=== PATIENT | female | born 1955 | race Caucasian/White ===

== ENCOUNTER 2016-11-17 07:28 | Day surgery (SDC) | payer BC ==
[2016-11-12 13:43] VITALS: BMI 29.5
[~2016-11-17 07:28] MED LIST: LACTATED RINGERS 1,000 ML IV SCH
[2016-11-17 08:00] VITALS: TEMP 97.7
[2016-11-17] MEDS ORDERED: PROPOFOL 10 MG/ML 20 ML VIAL IV ONE (08:06)
[2016-11-17 08:07] LABS: Glucose,Whole Blood 172 mg/dL (75-99)
--- NOTE | 2016-11-17 08:26 | P.PCN ---
Date of Procedure: 11/17/16 Preoperative Diagnosis: Postoperative Diagnosis: Procedure(s) Performed: BRIEF HISTORY: Patient is a 61-year-old pleasant white female, scheduled for an elective colonoscopy as a part of screening for colorectal neoplasia. PROCEDURE PERFORMED: Colonoscopy. PREOPERATIVE DIAGNOSIS: Screening for colon cancer. IV sedation per Anesthesia. PROCEDURE: After informed consent was obtained, the patient, was brought into the endoscopy unit. IV sedation was administered by Anesthesia under continuous monitoring. Digital rectal examination was normal. Initially the Olympus CF- 160 flexible video colonoscope was then inserted in the rectum, gradually advanced into the cecum without any difficulty. Careful examination was performed as the scope was gradually being withdrawn. Ileocecal valve and the appendiceal orifice were visualized and appeared normal. Prep was excellent. Mucosa of the cecum, ascending colon, transverse colon, descending colon, sigmoid colon, and rectum appeared normal. Retroflexion was performed in the rectum and no lesions were seen. The patient tolerated the procedure well. IMPRESSION: Normal-appearing colon from rectum to cecum with no evidence of colorectal neoplasia. RECOMMENDATIONS: Findings of this examination were discussed with the patient as well as a family. She was advised to have a repeat screening colonoscopy in 10 years. Implants: Indications for Procedure: Operative Findings: Description of Procedure:
[2016-11-17 09:12] VITALS: RESP 18
[2016-11-17 09:13] VITALS: BP 145/68; PULSE 69
== END 2016-11-17 09:16 | disposition home or self-care (01) ==
LOC: ORWHC2ENDO 07:28
PROVIDERS: ATTEND Internal Medicine Gastroenterology
DX: Z12.11 Encounter for screening for malignant neoplasm of colon (principal); C50.919 Malignant neoplasm of unspecified site of unspecified female breast; Z79.811 Long term (current) use of aromatase inhibitors; I10 Essential (primary) hypertension; I34.1 Nonrheumatic mitral (valve) prolapse; E11.9 Type 2 diabetes mellitus without complications; Z79.84 Long term (current) use of oral hypoglycemic drugs; Z79.82 Long term (current) use of aspirin; Z79.899 Other long term (current) drug therapy
CPT/HCPCS: J2704; G0121

== ENCOUNTER → 2017-03-30 | Outpatient (CLI) | payer BC ==
--- NOTE | 2017-03-31 08:58 | XR ---
EXAMINATION TYPE: XR chest 2V DATE OF EXAM: 03/30/2017 COMPARISON: 02/18/2015 HISTORY: Right-sided breast cancer. Patient undergoing radiation therapy. TECHNIQUE: Frontal and lateral views of the chest are obtained. FINDINGS: There is no focal air space opacity, pleural effusion, or pneumothorax seen. The cardiac silhouette size is within normal limits. The osseous structures are intact. IMPRESSION: No acute cardiopulmonary process, unchanged from 02/18/2015.
== END | disposition home or self-care (01) ==
LOC: RADXRMAIN 16:41
PROVIDERS: ATTEND Internal Medicine Medical Oncology
DX: C50.411 Malignant neoplasm of upper-outer quadrant of right female breast (principal)
CPT/HCPCS: 71020

== ENCOUNTER → 2017-03-30 | Outpatient (CLI) | payer BC ==
--- NOTE | 2017-03-31 07:00 | MM ---
Reason for exam: additional evaluation requested from prior study. Last mammogram was performed 1 year ago. History: Patient is postmenopausal, has history of breast cancer at age 57, and has history of other cancer at age 53. Family history of premenopausal breast cancer in sister at age 48 and breast cancer in paternal grandmother at age 60. Malignant right mammotome panel of the right breast, April 06, 2013. Lumpectomy of the right breast, 2012. Radiation therapy, 2012. Taking antineoplastic for 3 years beginning at age 57. Physical Findings: Nurse did not find any significant physical abnormalities on exam. MG 3D Diag Mammo W/Cad ARIELLE Bilateral CC and MLO view(s) were taken. Prior study comparison: March 29, 2016, bilateral MG 3d diag mammo w/cad ARIELLE. March 26, 2015, bilateral MG 3d diag mammo w/cad ARIELLE. Finding #1: Architectural distortion in the right breast consistent with previous biopsy. Finding #2: There are typically benign calcifications in both breasts. There is a chronic nodularity in the left breast. These results were verbally communicated with the patient and result sheet given to the patient on 03/30/17. ASSESSMENT: Benign, BI-RAD 2 RECOMMENDATION: Follow-up diagnostic mammogram of both breasts in 1 year.
--- NOTE | 2017-03-31 10:02 | US ---
EXAMINATION TYPE: US thyroid st tissue head/neck DATE OF EXAM: 03/30/2017 COMPARISON: NONE CLINICAL HISTORY: E04.1 Thyroid nodule. Pt states Dr may have felt enlarged neck on right side GLAND SIZE: Right Lobe: 4.4 x 1.6 x 1.5 cm Overall Parenchyma: homogenous Left Lobe: 3.6 x 1.5 x 1.4 cm Overall Parenchyma: homogeneous Isthmus Thickness: 0.3 cm Bilateral neck scanned, no evidence of lymphadenopathy. Small (2-3mm) size cysts right lobe of thyroi d, otherwise thyroid appeared wnl. IMPRESSION: Although the right lobe is larger than the left the thyroid gland is within normal limits of size. 2 to 3 mm right thyroid cysts are seen. No suspicious nodule.
== END | disposition home or self-care (01) ==
LOC: RADMAMWWP 15:37
PROVIDERS: ATTEND Family Medicine
DX: C50.919 Malignant neoplasm of unspecified site of unspecified female breast (principal); E04.1 Nontoxic single thyroid nodule
CPT/HCPCS: 76536; G0204; G0279

== ENCOUNTER → 2017-11-14 | Outpatient (CLI) | payer BC, OTHER ==
--- NOTE | 2017-11-14 16:32 | BD ---
EXAMINATION TYPE: Axial Bone Density DATE OF EXAM: 11/14/2017 COMPARISON: NONE CLINICAL HISTORY: 62-year-old female with breast cancer, postmenopausal screening Height: 5FT 4 1/2 IN Weight: 188 FRAX RISK QUESTIONS: History of Fracture in Adulthood: YES RISK FACTORS HISTORY OF: Active: YES Postmenopausal woman: IN HER 50'S MEDICATIONS: : Which medication: ESTROGEN LINDA, GLIPIZIDE,JANUVIA,LISINOPRIL , SIMVASTATIN , TRULICITY MULIT VIT How Long: Additional Medications: BREAST CANCER WITH RADIATION Additional History: EXAM MEASUREMENTS: Bone mineral densitometry was performed using the [employer] System. Bone mineral density as measured about the Lumbar spine is: ----- L1-L4(G/cm2): 1.149 T Score Values are as follows: ----- L2: 0.2 ----- L3: -0.4 ----- L4: -0.7 ----- L1-L4: -0.3 Bone mineral density has: INCREASED 4.2 % since study of: 2016 Bone mineral density about the R hip (g/cm2): 1.178 Bone mineral density about the L hip (g/cm2): 1.140 T Score values are as follows: -----R Neck: 1.0 -----L Neck: 0.7 -----R Total: 0.6 -----L Total: 0.6 Bone mineral density has: DECREASED -3.6 % since study of: 2016 IMPRESSION: Normal (Values between +1 and -1 indicate normal bone mass). Consider repeating this study in 5 year s or sooner if there is some new clinical indication. NOTE: T-SCORE=SD OF THE YOUNG ADULT MEAN.
== END | disposition home or self-care (01) ==
LOC: RADBDWWP 08:04
PROVIDERS: ATTEND Internal Medicine Medical Oncology
DX: C50.411 Malignant neoplasm of upper-outer quadrant of right female breast (principal)
CPT/HCPCS: 77080

== ENCOUNTER → 2018-05-19 | Outpatient (CLI) | payer BC ==
--- NOTE | 2018-05-19 14:59 | MM ---
Reason for exam: additional evaluation requested from prior study. Last mammogram was performed 1 year and 2 months ago. History: Patient is postmenopausal, has history of breast cancer at age 57, and has history of other cancer at age 53. Family history of premenopausal breast cancer in sister at age 48 and breast cancer in paternal grandmother at age 60. Malignant right mammotome panel of the right breast, April 06, 2013. Lumpectomy of the right breast, 2012. Radiation therapy, 2012. Taking antineoplastic for 5 years beginning at age 57. Physical Findings: Nurse did not find any significant physical abnormalities on exam. MG 3D Diag Mammo W/Cad ARIELLE Bilateral CC, MLO, and XCCL view(s) were taken. Prior study comparison: March 30, 2017, bilateral MG 3d diag mammo w/cad [facility]ELLE. March 29, 2016, bilateral MG 3d diag mammo w/cad ARIELLE. The breast tissue is heterogeneously dense. This may lower the sensitivity of mammography. No significant new findings when compared with previous films. These results were verbally communicated with the patient and result sheet given to the patient on 05/19/18. ASSESSMENT: Benign, BI-RAD 2 RECOMMENDATION: Routine screening mammogram of both breasts in 1 year.
== END | disposition home or self-care (01) ==
LOC: RADMAMWWP 13:48
PROVIDERS: ATTEND Internal Medicine Medical Oncology
DX: Z08 Encounter for follow-up examination after completed treatment for malignant neoplasm (principal); Z85.3 Personal history of malignant neoplasm of breast
CPT/HCPCS: 77062; 77066

== ENCOUNTER 2018-08-17 14:45 | Emergency (ER) | payer BC, OTHER ==
[2018-08-17 14:51] VITALS: BP 195/92; PULSE 62; RESP 18; TEMP 98
--- NOTE | 2018-08-17 16:07 | ED ---
Recheck HPI - General Chief Complaint: Needlestick/Exposure Stated Complaint: [facility] - needlestick Time Seen by Provider: 08/17/18 14:56 Source: patient Mode of arrival: ambulatory Limitations: no limitations - History of Present Illness Initial Comments: 63-year-old female with past HISTORY of hypertension and type 2 diabetes [id number] presents today for chief complaint of needle stick. Patient states she was poked in her left index finger after trying to recap the needle. Patient states there was a small amount of blood drawn. Patient is unsure of patient's past medical history stating it was a child she was administering insulin 2. Patient is an aide at a school. 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 pt cristian any other area of needle stick. Pt cleansed area thoroughly prior to arrival. Pt appears well upon arrival, BP elevated. Pt has known hypertension remaining ROS (-), Patient denies any recent fever, chills, shortness of breath, chest pain, back pain, abdominal pain, nausea or vomiting, numbness or tingling, dysuria or hematuria, constipation or diarrhea, headaches or visual changes, or any other complaints. - Related Data Home Medications Medication Instructions Recorded Confirmed Anastrozole [Arimidex] 1 mg PO DAILY 10/11/14 11/17/16 Aspirin 81 mg PO DAILY 10/11/14 11/17/16 Cholecalciferol [Vitamin D3] 3,000 unit PO DAILY@1200 10/11/14 11/17/16 Linagliptin [Tradjenta] 5 mg PO DAILY 10/11/14 11/17/16 Simvastatin [Zocor] 10 mg PO HS 10/11/14 11/17/16 glipiZIDE [Glucotrol] 10 mg PO AC-BID 10/11/14 11/17/16 metFORMIN HCL [Glucophage Xr] 3 tab PO PC-SUPPER 10/11/14 11/17/16 Bisoprol/Hydrochlorothiazide 1 each PO DAILY 11/12/16 11/17/16 [Bisoprolol-Hctz 10-6.25 mg Tab] Dulaglutide [Trulicity] 1.5 mg SQ WE 11/12/16 11/17/16 Multivitamins, Thera [Multivitamin 1 tab PO DAILY 11/12/16 11/17/16 (formulary)] Allergies Allergy/AdvReac Type Severity Reaction Status Date / Time No Known Allergies Allergy Verified 08/17/18 14:51 Review of Systems ROS Statement: Those systems with pertinent positive or pertinent negative responses have been documented in the HPI. ROS Other: All systems not noted in ROS Statement are negative. Past Medical History Past Medical History: Cancer, Diabetes Mellitus, Hypertension, Mitral Valve Prolapse (MVP) Additional Past Medical History / Comment(s): BREAST CANCER, basal cell skin cancer nose, HX MVP History of Any Multi-Drug Resistant Organisms: None Reported Past Surgical History: Breast Surgery, Orthopedic Surgery, Tonsillectomy Additional Past Surgical History / Comment(s): lt knee repair torn meniscus Past Anesthesia/Blood Transfusion Reactions: No Reported Reaction Past Psychological History: No Psychological Hx Reported Smoking Status: Never smoker Past Alcohol Use History: None Reported Past Drug Use History: None Reported - Past Family History Sister(s) Family Medical History: Cancer Additional Family Medical History / Comment(s): breast cancer General Exam - General Exam Comments Initial Comments: General: The patient is awake and alert, in no distress, and does not appear acutely ill. Eye: Pupils are equal, round and reactive to light, extra-ocular movements are intact. No nystagmus. There is normal conjunctiva bilaterally. No signs of icterus. Cardiovascular: There is a regular rate and rhythm. No murmur, rub or gallop is appreciated. Respiratory: Lungs are clear to auscultation, respirations are non-labored, breath sounds are equal. No wheezes, stridor, rales, or rhonchi. Musculoskeletal: Normal ROM, no tenderness. Strength 5/5. Sensation intact. Pulses equal bilaterally 2+. Neurological: A&O x 3. CN II-XII intact, There are no obvious motor or sensory deficits. Coordination appears grossly intact. Speech is normal. Skin: Skin is warm and dry and no rashes or lesions are noted. Psychiatric: Cooperative, appropriate mood & affect, normal judgment. Limitations: no limitations Course Vital Signs 08/17/18 08/17/18 14:48 16:22 Temperature 98.0 F 98.0 F Pulse Rate 62 62 Respiratory 18 18 Rate Blood Pressure 195/92 195/92 O2 Sat by Pulse 99 99 Oximetry Medical Decision Making - Medical Decision Making 63-year-old female with past HISTORY of hypertension and type 2 diabetes [id number] presents today for chief complaint of needle stick. Patient states she was poked in her left index finger after trying to recap the needle. Patient states there was a small amount of blood drawn. Patient is unsure of patient's past medical history stating it was a child she was administering insulin 2. Patient is an aide at a school. 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 I recommended patient have source come in for testing. Patient was tested for hepatitis B C and HIV with permission. Laboratory studies pending. Patient will be notified of any positive results. I recommended patient be retested next 2-3 months. Patient is to follow-up primary care provider for their recommendations in regards to repeat testing. Patient is agreeable plan as well as discharge. Patient denies questions at this time. Patient was discharged well. - Lab Data Lab Results 08/17/18 Range/Units 15:54 HIV-1 Antibody Non-Reactive (Non-Reactive) HIV Ag/Ab Interpret HIV p24 Antibody Non-Reactive (Non-Reactive) HIV-2 Antibody Non-Reactive (Non-Reactive) HIV P24 Antigen Non-Reactive (Non-Reactive) Disposition Clinical Impression: Needle stick injury of finger Disposition: HOME SELF-CARE Condition: Good Instructions (If sedation given, give patient instructions): Needle Stick Injuries (ED) Additional Instructions: Please use medication as discussed. Please follow-up with family doctor in the next 2 days, I recommend repeat testing in 2-3 months. Please return to emergency room if the symptoms increase or worsen or for any other concerns. Is patient prescribed a controlled substance at d/c from ED?: No Referrals: Lora Sarah MD [Primary Care Provider] - 1-2 days Time of Disposition: 16:06
[2018-08-17 23:48] LABS: HIV 1 AB Non-Reactive (Non-Reactive); HIV AB P24 Non-Reactive (Non-Reactive); HIV P24 AG Non-Reactive (Non-Reactive)
[2018-08-18 00:12] LABS: Hepatitis B Surface AB- Quant 208.4 mIU/mL; Hepatitis C IgG Antibody Non-Reactive (Non-Reactive)
== END 2018-08-17 16:22 | disposition home or self-care (01) ==
LOC: EC 14:45
DX: S69.92XA Unspecified injury of left wrist, hand and finger(s), initial encounter (principal); E11.9 Type 2 diabetes mellitus without complications; I10 Essential (primary) hypertension; Z85.828 Personal history of other malignant neoplasm of skin; Z85.3 Personal history of malignant neoplasm of breast; Z79.84 Long term (current) use of oral hypoglycemic drugs; Z79.82 Long term (current) use of aspirin; Z79.899 Other long term (current) drug therapy; W27.3XXA Contact with needle (sewing), initial encounter; Y99.0 Civilian activity done for income or pay
CPT/HCPCS: 36415; 86706; 86803; 87390; 99283

== ENCOUNTER → 2019-06-22 | Outpatient (CLI) | payer BC ==
--- NOTE | 2019-06-26 10:09 | MM ---
Reason for exam: screening (asymptomatic). Last mammogram was performed 1 year and 1 month ago. History: Patient is postmenopausal, has history of breast cancer at age 57, and has history of other cancer at age 53. Family history of premenopausal breast cancer in sister at age 48 and breast cancer in paternal grandmother at age 60. Malignant right mammotome panel of the right breast, April 06, 2013. Lumpectomy of the right breast, 2012. Radiation therapy, 2012. Taking antineoplastic for 5 years beginning at age 57. Physical Findings: A clinical breast exam by your physician is recommended on an annual basis and results should be correlated with mammographic findings. MG 3D Screening Mammo W/Cad Bilateral CC and MLO view(s) were taken. Prior study comparison: May 19, 2018, bilateral MG 3d diag mammo w/cad ARIELLE. March 30, 2017, bilateral MG 3d diag mammo w/cad ARIELLE. The breast tissue is heterogeneously dense. This may lower the sensitivity of mammography. Post surgical changes right breast. No significant changes when compared with prior studies. ASSESSMENT: Benign, BI-RAD 2 RECOMMENDATION: Routine screening mammogram of both breasts in 1 year.
== END | disposition home or self-care (01) ==
LOC: RADMAMWWP 16:04
PROVIDERS: ATTEND Family Medicine
DX: Z12.31 Encounter for screening mammogram for malignant neoplasm of breast (principal)
CPT/HCPCS: 77063; 77067

== ENCOUNTER → 2020-07-30 | Outpatient (CLI) | payer BC ==
--- NOTE | 2020-08-04 09:51 | MM ---
Reason for exam: screening (asymptomatic). Last mammogram was performed 1 year and 1 month ago. History: Patient is postmenopausal, has history of breast cancer at age 57, and has history of other cancer at age 53. Family history of premenopausal breast cancer in sister at age 48 and breast cancer in paternal grandmother at age 60. Malignant right mammotome panel of the right breast, April 06, 2013. Lumpectomy of the right breast, 2012. Radiation therapy, 2012. Taking antineoplastic for 5 years beginning at age 57. Physical Findings: A clinical breast exam by your physician is recommended on an annual basis and results should be correlated with mammographic findings. MG 3D Screening Mammo W/Cad Bilateral CC and MLO view(s) were taken. Prior study comparison: June 22, 2019, bilateral MG 3d screening mammo w/cad. May 19, 2018, bilateral MG 3d diag mammo w/cad ARIELLE. The breast tissue is heterogeneously dense. This may lower the sensitivity of mammography. Post surgical change right breast. Inferior asymmetric density on the right MLO view is unchanged from 2016. Scattered dystrophic calcifications on the left are unchanged. ASSESSMENT: Benign, BI-RAD 2 RECOMMENDATION: Routine screening mammogram of both breasts in 1 year.
== END | disposition home or self-care (01) ==
LOC: RADMAMWWP 16:28
PROVIDERS: ATTEND Family Medicine
DX: Z12.31 Encounter for screening mammogram for malignant neoplasm of breast (principal)
CPT/HCPCS: 77063; 77067

== ENCOUNTER → 2021-08-06 | Outpatient (CLI) | payer BC, MEDICARE ==
--- NOTE | 2021-08-07 12:25 | MM ---
Reason for exam: screening (asymptomatic). Last mammogram was performed 1 year ago. History: Patient is postmenopausal, has history of breast cancer at age 57, and has history of other cancer at age 53. Family history of premenopausal breast cancer in sister at age 48 and breast cancer in paternal grandmother at age 60. Malignant right mammotome panel of the right breast, April 06, 2013. Lumpectomy of the right breast, 2012. Radiation therapy, 2012. Taking antineoplastic for 5 years beginning at age 57. Physical Findings: A clinical breast exam by your physician is recommended on an annual basis and results should be correlated with mammographic findings. MG 3D Screening Mammo W/Cad Bilateral CC and MLO view(s) were taken. Prior study comparison: July 30, 2020, bilateral MG 3d screening mammo w/cad. June 22, 2019, bilateral MG 3d screening mammo w/cad. The breast tissue is heterogeneously dense. This may lower the sensitivity of mammography. Finding #1: Stable architectural distortion in the right breast consistent with known lumpectomy changes. Finding #2: There are typically benign dystrophic, round calcifications in both breasts. There is no discrete abnormality. ASSESSMENT: Benign, BI-RAD 2 RECOMMENDATION: Routine screening mammogram of both breasts in 1 year.
== END | disposition home or self-care (01) ==
LOC: RADMAMWWP 13:42
PROVIDERS: ATTEND Family Medicine
DX: Z12.31 Encounter for screening mammogram for malignant neoplasm of breast (principal); Z78.0 Asymptomatic menopausal state; Z85.3 Personal history of malignant neoplasm of breast; Z80.3 Family history of malignant neoplasm of breast
CPT/HCPCS: 77063; 77067

== ENCOUNTER → 2022-08-18 | Outpatient (CLI) | payer BC ==
--- NOTE | 2022-08-19 08:52 | MM ---
Reason for Exam: Screening (asymptomatic). Last mammogram was performed 1 year(s) and 1 month(s) ago. Patient History: Menarche at age 11. First Full-Term at age 20. Postmenopausal. Patient has history of breast feeding. Other cancer, age 53. Breast cancer, age 57. 2012, Lumpectomy on the Right side. 04/06/2013, Malignant Core Biopsy on the right side. 2012, Radiation Therapy. Paternal grandmother had breast cancer, age 60. Sister had breast cancer, age 48. Prior Study Comparison: 06/22/2019 Bilateral Screening Mammogram, [facility]. 07/30/2020 Bilateral Screening Mammogram, [facility]. 08/06/2021 Bilateral Screening Mammogram, [facility]. Tissue Density: The breast tissue is heterogeneously dense. This may lower the sensitivity of mammography. Findings: Analyzed By CAD. There is no suspicious group of microcalcifications or new suspicious mass in either breast. Stable postoperative distortion right breast. Overall Assessment: Benign, BI-RAD 2 Management: Screening Mammogram of both breasts in 1 year. A clinical breast exam by your physician is recommended on an annual basis and results should be correlated with mammographic findings. Electronically signed and approved by: Portillo Mcleod M.D. Radiologis
== END | disposition home or self-care (01) ==
LOC: RADMAMWWP 15:25
PROVIDERS: ATTEND Family Medicine
DX: Z12.31 Encounter for screening mammogram for malignant neoplasm of breast (principal); Z78.0 Asymptomatic menopausal state; Z80.3 Family history of malignant neoplasm of breast
CPT/HCPCS: 77063; 77067

== ENCOUNTER → 2023-08-23 | Outpatient (CLI) | payer BC ==
--- NOTE | 2023-08-24 12:16 | MM ---
Reason for Exam: Screening (asymptomatic). Last screening mammogram was performed 12 month(s) ago. Patient History: Menarche at age 11. First Full-Term at age 20. Postmenopausal. Patient has history of breast feeding. Other cancer, age 53. Breast cancer, right, age 57. 2012, Lumpectomy on the Right side. 04/06/2013, Malignant Core Biopsy on the right side. 2012, Radiation Therapy. Paternal grandmother had breast cancer, age 60. Sister had breast cancer, age 48. Prior Study Comparison: 07/30/2020 Bilateral Screening Mammogram, [facility]. 08/06/2021 Bilateral Screening Mammogram, [facility]. 08/18/2022 Bilateral MG 3D screening mammo w/cad, [facility]. Tissue Density: The breasts are heterogeneously dense, which may obscure small masses. Findings: Analyzed By CAD. No suspicious grouped calcifications. There is a new small 5 mm nodule in the central lower margin left breast. Stable postoperative architectural distortion right breast. Benign-appearing calcifications noted. Overall Assessment: Incomplete: need additional imaging evaluation, BI-RAD 0 Management: Diagnostic Mammogram of the left breast. . Patient should continue monthly self-breast exams. A clinical breast exam by your physician is recommended on an annual basis. This exam should not preclude additional follow-up of suspicious palpable abnormalities. Note on Mine scores and lifetime risk: 1. A Mine score greater than 3% is considered moderate risk. If this is the case, consider specialist referral to assess eligibility for a risk reducing agent. 2. If overall lifetime risk for the development of breast cancer is 20% or higher, the patient may qualify for future screening with alternating mammogram and breast MRI. Electronically signed and approved by: Júnior David M.D. Radiologis
== END | disposition home or self-care (01) ==
LOC: RADMAMWWP 12:36
PROVIDERS: ATTEND Family Medicine
DX: Z12.31 Encounter for screening mammogram for malignant neoplasm of breast (principal); Z78.0 Asymptomatic menopausal state; Z80.3 Family history of malignant neoplasm of breast
CPT/HCPCS: 77063; 77067

== ENCOUNTER → 2023-08-25 | Outpatient (CLI) | payer BC ==
--- NOTE | 2023-08-25 15:28 | USB ---
Reason for Exam: Additional evaluation requested from abnormal screening. Patient History: Menarche at age 11. First Full-Term at age 20. Postmenopausal. Patient has history of breast feeding. Other cancer, age 53. Breast cancer, right, age 57. 2012, Lumpectomy on the Right side. 04/06/2013, Malignant Core Biopsy on the right side. 2012, Radiation Therapy. Paternal grandmother had breast cancer, age 60. Sister had breast cancer, age 48. Technique: Method: Targeted. Prior Study Comparison: 08/06/2021 Bilateral Screening Mammogram, [facility]. 08/18/2022 Bilateral MG 3D screening mammo w/cad, [facility]. 08/23/2023 Bilateral MG 3D screening mammo w/cad, [facility]. Findings: The lower section of the breast of the left breast, the axilla of the left breast and the retroareolar of the left breast were scanned. 5 mm cyst left 9:00 position 4 cm from the nipple. No solid masses are seen. Overall Assessment: Benign, BI-RAD 2 Management: Screening Mammogram of both breasts in 1 year. A clinical breast exam by your physician is recommended on an annual basis and results should be correlated with mammographic findings. This exam should not preclude additional follow-up of suspicious palpable abnormalities. Results were given to the patient verbally at the time of exam. Electronically signed and approved by: Portillo Mcleod M.D. Radiologis
--- NOTE | 2023-08-26 08:18 | MM ---
Reason for Exam: Additional evaluation requested from abnormal screening. Last screening mammogram was performed less than 1 month ago. Patient History: Menarche at age 11. First Full-Term at age 20. Postmenopausal. Patient has history of breast feeding. Other cancer, age 53. Breast cancer, right, age 57. 2012, Lumpectomy on the Right side. 04/06/2013, Malignant Core Biopsy on the right side. 2012, Radiation Therapy. Paternal grandmother had breast cancer, age 60. Sister had breast cancer, age 48. Prior Study Comparison: 08/06/2021 Bilateral Screening Mammogram, [facility]. 08/18/2022 Bilateral MG 3D screening mammo w/cad, [facility]. 08/23/2023 Bilateral MG 3D screening mammo w/cad, [facility]. Tissue Density: Left: The breasts are heterogeneously dense, which may obscure small masses. Findings: Analyzed By CAD. There is a 5.5 cm well-circumscribed nodular density 9:00 position left breast ultrasound is recommended. Overall Assessment: Incomplete: need additional imaging evaluation, BI-RAD 0 Management: Diagnostic Breast Ultrasound of the left breast. Results were given to the patient verbally at the time of exam. Patient should continue monthly self-breast exams. A clinical breast exam by your physician is recommended on an annual basis. This exam should not preclude additional follow-up of suspicious palpable abnormalities. Note on Mine scores and lifetime risk: 1. A Mine score greater than 3% is considered moderate risk. If this is the case, consider specialist referral to assess eligibility for a risk reducing agent. 2. If overall lifetime risk for the development of breast cancer is 20% or higher, the patient may qualify for future screening with alternating mammogram and breast MRI. Electronically signed and approved by: Portillo Mcleod M.D. Radiologis
== END | disposition home or self-care (01) ==
LOC: RADMAMWWP 14:43
PROVIDERS: ATTEND Family Medicine
DX: R92.8 Other abnormal and inconclusive findings on diagnostic imaging of breast (principal); Z78.0 Asymptomatic menopausal state; Z80.3 Family history of malignant neoplasm of breast
CPT/HCPCS: 77061; 77065